=== PATIENT | female | born 1990 | race Caucasian/White ===

== ENCOUNTER 2017-03-25 18:22 | Inpatient (IN) | payer MEDICAID, OTHER ==
[~2017-03-25] VITALS: Ht 157.5 cm; Wt 84.2 kg
[~2017-03-25 18:22] MED LIST: DOCU-131 PO; DOXY100T PO; FERR325T18 PO; IBUP-1223 PO; OXYC-302 PO
[2017-03-25] MEDS ORDERED: SODIUM CHLORIDE 0.9% 1,000ML IVBOLUS ONE ×2 (19:00→19:30)
[2017-03-25] MEDS ORDERED: SODIUM CHLORIDE FLUSH 10ML SYR IVF ONE (19:00)
[2017-03-25 19:22] LABS: HEMATOCRIT 29.5 % (34.6-47.8); HEMOGLOBIN 9.3 g/dL (11.7-16.4); WHITE BLOOD COUNT 25.8 x10^3/uL (3.4-10)
[2017-03-25] MEDS ORDERED: CEFTRIAXONE PMX 1GM/50ML 50 ML IVPB ONE (19:30)
[2017-03-25] MEDS ORDERED: AZITHROMYCIN 500 MG in SODIUM CHLORIDE 0.9% 250 ML IVPB ONE (19:30)
[2017-03-25 19:33] LABS: BLOOD UREA NITROGEN 12 mg/dL (7-18)
[2017-03-25 19:45] LABS: DIFF TOTAL CELLS COUNTED 100 CELL DIFF
[2017-03-25 19:47] LABS: ANISOCYTOSIS 1+; POLYCHROMASIA 1+; VERIFY COUNTS? YES
[2017-03-25] MEDS ORDERED: CEFTRIAXONE PMX 1GM/50ML 50 ML ONE (19:49)
[2017-03-25] MEDS ORDERED: ACETAMINOPHEN 500 MG TABLET ONE (20:25)
[2017-03-25] MEDS ORDERED: ACETAMINOPHEN 500 MG TABLET PO ONE (20:30)
[2017-03-25 20:48] LABS: RAPID INFLUENZA A Negative (Negative); RAPID INFLUENZA B Negative (Negative)
[2017-03-25] MEDS ORDERED: ALBUTEROL/IPRATROPIUM 2.5MG/0.5MG, 3 ML ONE (20:52)
[2017-03-25] MEDS ORDERED: ACETAMINOPHEN 325 MG TABLET PO PRN (21:00)
[2017-03-25] MEDS ORDERED: ENOXAPARIN 40 MG/0.4 ML SQ SCH (21:00)
[2017-03-25] MEDS ORDERED: HYDROcodone/APAP 5/325 TABLET PO ONE (21:00)
[2017-03-25] MEDS: methylPREDNISolone SOD SUCC 125 MG/2 ML IVPush SCH (21:00)
[2017-03-25] MEDS ORDERED: methylPREDNISolone SOD SUCC 125 MG/2 ML IVPush ONE (21:00)
[2017-03-25] MEDS ORDERED: KETOROLAC 30 MG/1 ML IVPush ONE (21:00)
[2017-03-25] MEDS ORDERED: ALBUTEROL/IPRATROPIUM 2.5MG/0.5MG, 3 ML NPPB ONE (21:00)
[2017-03-25] MEDS ORDERED: LEVOFLOXACIN/PMX 750MG/150ML 150 ML IV SCH (21:00)
[2017-03-25] MEDS ORDERED: POTASSIUM CHLORIDE 20 MEQ TAB.ER.PRT PO ONE (21:00)
[2017-03-25] MEDS ORDERED: methylPREDNISolone SOD SUCC 125 MG/2 ML ONE ×2 (21:00→21:19)
[2017-03-25] MEDS ORDERED: ALBUTEROL SULFATE 2.5 MG/3 ML NPPB ONE (21:00)
[2017-03-25] MEDS ORDERED: KETOROLAC 30 MG/1 ML ONE ×2 (21:00→21:20)
[2017-03-25] MEDS ORDERED: HYDROcodone/APAP 5/325 TABLET ONE (21:19)
[2017-03-25] MEDS ORDERED: ALBUTEROL/IPRATROPIUM 2.5MG/0.5MG, 3 ML NPPB PRN (22:00)
[2017-03-25 22:12] VITALS: BP 114/74
[2017-03-25] MEDS: SODIUM CHLORIDE 0.9% 1,000 ML IV SCH (22:39)
[2017-03-26 02:10] VITALS: BP 108/70
[2017-03-26] MEDS: methylPREDNISolone SOD SUCC 125 MG/2 ML IVPush SCH ×3 (03:22→18:45)
[2017-03-26] MEDS ORDERED: KETOROLAC 30 MG/1 ML IM PRN (06:30)
[2017-03-26 07:10] VITALS: BP 116/78
[2017-03-26 07:24] LABS: HEMATOCRIT 29.6 % (34.6-47.8); HEMOGLOBIN 9.3 g/dL (11.7-16.4); WHITE BLOOD COUNT 28.3 x10^3/uL (3.4-10)
[2017-03-26 07:25] LABS: BLOOD UREA NITROGEN 14 mg/dL (7-18); TOTAL IRON BINDING CAPACITY 398 mcg/dL (250-450)
[2017-03-26 08:18] LABS: DIFF TOTAL CELLS COUNTED 100 CELL DIFF
[2017-03-26 08:20] LABS: ANISOCYTOSIS 1+; MICROCYTOSIS 1+; POLYCHROMASIA 1+; VERIFY COUNTS? YES
[2017-03-26] MEDS ORDERED: VANCOMYCIN PER PHARMACY MC PRN (08:30)
[2017-03-26] MEDS ORDERED: PHARMACOKINETIC CONSULTATION MC ONE (09:00)
[2017-03-26] MEDS ORDERED: PHARMACOKINETIC MONITORING MC PRN (09:00)
[2017-03-26] MEDS: PIPERACILLIN/TAZO/PMX 3.375GM 50 ML IV SCH ×3 (09:20→18:45)
[2017-03-26] MEDS: SODIUM CHLORIDE 0.9% 1,000 ML IV SCH (11:25)
[2017-03-26] MEDS: VANCOMYCIN 1,600 MG in SODIUM CHLORIDE 0.9% 250 ML IV SCH (12:16)
[2017-03-26 12:17] VITALS: BP 118/80
[2017-03-26] MEDS: morphine SULFATE 10 MG/ML, 1ML IVPush PRN ×2 (12:22→21:28)
[2017-03-26] MEDS ORDERED: SODIUM PHOSPHATE 20 MMOL in SODIUM CHLORIDE 0.9% 500 ML IV ONE (19:00)
[2017-03-26 20:03] VITALS: BP 123/73
[2017-03-26] MEDS: GUAIFENESIN/DM 200-20MG, 10ML UDC PO PRN (21:17)
[2017-03-27] MEDS: SODIUM CHLORIDE 0.9% 1,000 ML IV SCH ×3 (00:34→21:49)
[2017-03-27] MEDS: VANCOMYCIN 1,600 MG in SODIUM CHLORIDE 0.9% 250 ML IV SCH ×3 (00:34→19:32)
[2017-03-27] MEDS: methylPREDNISolone SOD SUCC 125 MG/2 ML IVPush SCH ×4 (01:11→19:31)
[2017-03-27] MEDS: morphine SULFATE 10 MG/ML, 1ML IVPush PRN ×4 (01:21→22:30)
[2017-03-27 02:49] VITALS: BP 127/89
[2017-03-27] MEDS: PIPERACILLIN/TAZO/PMX 3.375GM 50 ML IV SCH ×4 (04:07→21:49)
[2017-03-27] MEDS: GUAIFENESIN/DM 200-20MG, 10ML UDC PO PRN ×2 (04:28→19:40)
[2017-03-27 07:04] VITALS: BP 133/92
[2017-03-27] MEDS ORDERED: METHADONE 5 MG TABLET ONE (09:41)
[2017-03-27] MEDS: METHADONE 5 MG TABLET PO SCH ×2 (10:08→19:31)
[2017-03-27] MEDS ORDERED: POTASSIUM PHOS 4.4 MEQ/ML IV ONE (12:30)
[2017-03-27 12:55] VITALS: BP 128/87
[2017-03-27] MEDS ORDERED: POTASSIUM PHOSPHATE 22 MEQ in SODIUM CHLORIDE 0.9% 500 ML IV ONE (13:00)
[2017-03-27 14:08] LABS: WHITE BLOOD COUNT 20.1 x10^3/uL (3.4-10)
[2017-03-27 14:23] LABS: BLOOD UREA NITROGEN 19 mg/dL (7-18)
[2017-03-27 14:28] LABS: DIFF TOTAL CELLS COUNTED 100 CELL DIFF
[2017-03-27 14:30] LABS: VERIFY COUNTS? YES
[2017-03-27 14:31] LABS: ANISOCYTOSIS 1+; HYPOCHROMIA 1+; MICROCYTOSIS 2+; OVALOCYTES 1+; POLYCHROMASIA 1+
[2017-03-27] MEDS: CALCIUM CARBONATE 500 MG TAB.CHEW PO PRN (19:24)
[2017-03-27 20:04] VITALS: BP 109/60
[2017-03-28] MEDS: methylPREDNISolone SOD SUCC 125 MG/2 ML IVPush SCH ×3 (01:39→13:43)
[2017-03-28] MEDS: morphine SULFATE 10 MG/ML, 1ML IVPush PRN ×4 (01:39→12:07)
[2017-03-28] MEDS: GUAIFENESIN/DM 200-20MG, 10ML UDC PO PRN ×3 (01:39→19:40)
[2017-03-28 02:05] VITALS: BP 122/78
[2017-03-28] MEDS: PIPERACILLIN/TAZO/PMX 3.375GM 50 ML IV SCH ×4 (04:14→23:24)
[2017-03-28 07:07] VITALS: BP 119/72
[2017-03-28] MEDS: VANCOMYCIN 1,600 MG in SODIUM CHLORIDE 0.9% 250 ML IV SCH (07:59)
[2017-03-28] MEDS: METHADONE 5 MG TABLET PO SCH ×2 (07:59→19:30)
[2017-03-28 08:23] LABS: BLOOD UREA NITROGEN 23 mg/dL (7-18)
[2017-03-28 08:45] LABS: HEMATOCRIT 25.2 % (34.6-47.8); HEMOGLOBIN 7.8 g/dL (11.7-16.4); WHITE BLOOD COUNT 14.8 x10^3/uL (3.4-10)
[2017-03-28 13:16] VITALS: BP 136/79
[2017-03-28] MEDS: ONDANSETRON 2MG/ML, 2ML IVPush PRN ×2 (13:43→19:30)
[2017-03-28] MEDS ORDERED: KETOROLAC 30 MG/1 ML IV PRN (14:30)
[2017-03-28] MEDS ORDERED: IBUPROFEN 600 MG TABLET PO PRN (15:00)
[2017-03-28] MEDS ORDERED: DIPHENHYDRAMINE 25 MG CAPSULE PO PRN (15:00)
[2017-03-28] MEDS: CALCIUM CARBONATE 500 MG TAB.CHEW PO PRN (19:30)
[2017-03-28 20:05] VITALS: BP 114/75
[2017-03-29 01:29] VITALS: BP 125/76
[2017-03-29] MEDS: SODIUM CHLORIDE 0.9% 1,000 ML IV SCH ×2 (03:05→12:12)
[2017-03-29] MEDS: ONDANSETRON 2MG/ML, 2ML IVPush PRN (03:05)
[2017-03-29] MEDS: GUAIFENESIN/DM 200-20MG, 10ML UDC PO PRN (03:10)
[2017-03-29] MEDS: PIPERACILLIN/TAZO/PMX 3.375GM 50 ML IV SCH ×3 (05:28→17:39)
[2017-03-29] MEDS: METHADONE 5 MG TABLET PO SCH ×2 (08:03→20:31)
[2017-03-29 09:00] VITALS: BP 131/89
[2017-03-29 10:11] LABS: HEMATOCRIT 26.3 % (34.6-47.8); HEMOGLOBIN 8.1 g/dL (11.7-16.4); WHITE BLOOD COUNT 19.3 x10^3/uL (3.4-10)
[2017-03-29 14:45] VITALS: BP 153/96
[2017-03-29 19:43] VITALS: BP 137/83
[2017-03-30 04:31] VITALS: BP 131/80
[2017-03-30] MEDS: PIPERACILLIN/TAZO/PMX 3.375GM 50 ML IV SCH ×2 (06:00)
[2017-03-30 07:26] VITALS: BP 133/82
[2017-03-30] MEDS: METHADONE 5 MG TABLET PO SCH (09:06)
[2017-03-30] MEDS: SODIUM CHLORIDE 0.9% 1,000 ML IV SCH ×2 (09:06)
== END 2017-03-30 10:05 | disposition left against medical advice (07) | DRG 871 ==
LOC: ED 20:00 → SUATTDRO 21:00 → EDIP 21:00 → ED 21:21 → 5SO 22:05 → 4NOR 03-26 13:04
PROVIDERS: ADMIT Hospitalist; ATTEND Family Medicine
DX: A40.3 Sepsis due to Streptococcus pneumoniae (principal); J18.9 Pneumonia, unspecified organism; R65.20 Severe sepsis without septic shock; E44.1 Mild protein-calorie malnutrition; D50.9 Iron deficiency anemia, unspecified; F11.10 Opioid abuse, uncomplicated; E87.1 Hypo-osmolality and hyponatremia; F17.210 Nicotine dependence, cigarettes, uncomplicated; J98.01 Acute bronchospasm; Z53.21 Procedure and treatment not carried out due to patient leaving prior to being seen by health care provider; E87.6 Hypokalemia; Z68.34 Body mass index [BMI] 34.0-34.9, adult
CPT/HCPCS: 36415; 71020; 80048; 80202; 82040; 83540; 83550; 83605; 83735; 84100; 84145; 84703; 85025; 87040; 87181; 87324; 87400; 93005; 93306; 94640; 96361; 96365; 96368; 96375; J0456; J0696; J1650; J1885; J1956; J2405; J2543; J3370; J7620; J2270; J2930; J7030; J7040; J7050; J7512; Q0163

== ENCOUNTER 2020-06-22 01:13 | Observation (INO) | payer MEDICAID ==
[~2020-06-22] VITALS: Ht 160 cm; Wt 77.8 kg
[~2020-06-22 01:13] MED LIST changes: -OXYC-302 PO; +OXYC1TAB14 PO
[2020-06-22] MEDS ORDERED: ALBUTEROL/IPRATROPIUM 2.5MG/0.5MG, 3 ML ONE (01:28)
[2020-06-22] MEDS ORDERED: MAGNESIUM SULFATE PMX 2GM/50ML 50 ML IVPB ONE (01:30)
[2020-06-22] MEDS ORDERED: SODIUM CHLORIDE 0.9% 1,000ML IVBOLUS ONE (01:30)
[2020-06-22] MEDS ORDERED: methylPREDNISolone SOD SUCC 125 MG/2 ML IVPush ONE (01:30)
[2020-06-22] MEDS ORDERED: ALBUTEROL 0.5%, 20ML NPPB SCH (01:30)
[2020-06-22] MEDS ORDERED: SODIUM CHLORIDE FLUSH 10ML SYR IVF ONE (01:30)
[2020-06-22] MEDS ORDERED: ALBUTEROL/IPRATROPIUM 2.5MG/0.5MG, 3 ML NPPB ONE (01:30)
[2020-06-22] MEDS ORDERED: ALBUTEROL 0.5%, 20ML ONE (01:46)
[2020-06-22] MEDS ORDERED: methylPREDNISolone SOD SUCC 125 MG/2 ML ONE (02:02)
[2020-06-22] MEDS ORDERED: MAGNESIUM SULFATE PMX 2GM/50ML 50 ML ONE (02:03)
--- NOTE | 2020-06-22 02:54 | NUR ---
Pt to ER with c/o difficulty breathing. Pt has hx of asthma, states she has been out of her meds. Pt to ER with labored breathing, and wheezing. Pt clamy to touch. Pt on monitor, duoneb given, and IV started. CXR complete. RT at bedside giving cont albuterol neb. Pt medicated per order. Pt with slight improvment in breathing. Continues to have wheeze. VS at this time. Family at bedside. Warm blanket given. Call light in reach. Will continue to monitor.
[2020-06-22] MEDS ORDERED: ONDANSETRON 2MG/ML, 2ML IVPush PRN (03:00)
[2020-06-22] MEDS ORDERED: HYDROcodone/APAP 5/325 TABLET PO PRN (03:00)
[2020-06-22] MEDS ORDERED: ACETAMINOPHEN 325 MG TABLET PO PRN (03:00)
--- NOTE | 2020-06-22 03:25 | NUR ---
Admit physician at bedside. Lab at bedside, pt refuses lab at this time. Physician at bedside and aware. Ok to try later. Cont albuterol neb stopped, pt on 2L NC with sats in mid 90's. Pt with improved work of breathing. Report called to Fide LEDESMA. Pt ready for transport to floor.
[2020-06-22 03:55] VITALS: BP 134/85
[2020-06-22] MEDS ORDERED: albuterol inhaler INH (04:29)
[2020-06-22 06:16] VITALS: BP 133/80
[2020-06-22] MEDS ORDERED: BUPRENORPHINE/NALOXONE 8-2MG SL ONE (06:30)
[2020-06-22] MEDS ORDERED: ALBUTEROL/IPRATROPIUM 2.5MG/0.5MG, 3 ML NPPB SCH (07:00)
[2020-06-22] MEDS: ALBUTEROL-IPRATROPIUM MDI INH INH SCH ×3 (07:35→14:55)
[2020-06-22] MEDS ORDERED: FLUTICASONE FUROATE 100MCG/INH INH SCH (09:00)
[2020-06-22] MEDS ORDERED: SALMETEROL INH 50MCG/INH DISK.W.DEV INH SCH (09:00)
[2020-06-22] MEDS ORDERED: BUDESONIDE 0.5 MG/2 ML INHA INH SCH (09:00)
[2020-06-22 12:14] VITALS: BP 129/90
[2020-06-22] MEDS ORDERED: methylPREDNISolone SOD SUCC 125 MG/2 ML IVPush SCH (14:00)
== END 2020-06-22 17:35 | disposition left against medical advice (07) ==
LOC: ED 02:44 → EDIP 02:58 → INTOOBSV 02:58 → 4EST 03:37
PROVIDERS: ADMIT Internal Medicine; ATTEND Family Medicine
DX: J45.902 Unspecified asthma with status asthmaticus (principal); J96.01 Acute respiratory failure with hypoxia; F17.210 Nicotine dependence, cigarettes, uncomplicated; Z71.6 Tobacco abuse counseling; Z79.899 Other long term (current) drug therapy
CPT/HCPCS: 71045; 93005; 94640; 96361; 96365; 96375; 99291; G0378; J0574; J2930; J3475; J7030; 94644; 99285